=== PATIENT | female | born 1945 | race Caucasian/White ===

== ENCOUNTER 2021-11-13 09:47 | Emergency (ER) | payer MEDICARE, OTHER ==
[~2021-11-13] VITALS: Ht 170 cm; Wt 79.3 kg
[~2021-11-13 09:47] MED LIST: TRM50T PO
--- NOTE | 2021-11-13 10:43 | ED Back Pain ---
General Chief Complaint: Back Problems Stated Complaint: FALL 11/05 - NECK & BACK PAIN Nursing Triage Note: PT AMBULATORY TO ER, PT REPORTS FALLING LAST SATURDAY, STATES HIS HER BACK ON A WOODEN ROCKING HORSE WHEN SHE FELL DOWN, DENIES LOC. PT C/O PAIN TO MID-BACK, RADIATES AROUND INTO ANTERIOR RIBS. PT HAS TAKEN OTC TYLENOL AND IBUPROFEN FOR PAIN CONTROL. Source of Information: Patient Exam Limitations: No Limitations History of Present Illness Date Seen by Provider: Nov 13, 2021 Time Seen by Provider: 10:28 Initial Comments Patient to the ER by private conveyance chief complaint that 1 week ago she had a fall accidentally landing on her back. She does not think she hit her ribs. But has progressively gotten worse with pain and now radiating up her back and her neck as well as across her right lower lateral and anterior ribs. Worse with taking a deep breath. No cough fevers or chills. No loss of control of bowel or bladder, saddle anesthesia, numbness, tingling or falls due to weakness. She is been using Nambutone, Tylenol and NSAIDs without significant relief of pain. Allergies and Home Medications Allergies Coded Allergies: Codeine (Verified Allergy, Unknown, 05/06/08) Penicillins (Verified Allergy, Unknown, 05/06/08) Patient Home Medication List Home Medication List Reviewed: Yes Tramadol Hcl (Ultram) 50 Mg Tab, 100 MG PO Q12H PRN, (Reported) Entered as Reported by: MYLES JOHNSTON on 11/02/12 1033 Review of Systems Constitutional: No chills, No fever, No malaise EENTM: No ear discharge, No hearing loss Respiratory: No cough, No phlegm, No short of breath Cardiovascular: No chest pain, No edema Gastrointestinal: No abdominal pain, No nausea, No vomiting Genitourinary: No dysuria, No frequency : No All Other Systems Reviewed Negative Unless Noted: Yes Past [place]-Xocyif-Ffmfep Hx Patient Social History Tobacco Use?: No Use of E-Cig and/or Vaping dev: No Substance use?: No Alcohol Use?: No Pt feels they are or have been: No Immunizations Up To Date Tetanus Booster (TDap): Unknown PED Vaccines UTD: Yes First/Initial COVID19 Vaccinat: NO Past Medical History 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 0.0oz. 74.466504yy; 27.00 BMI Method: General Appearance: WD/WN, Mild Distress HEENT: PERRL/EOMI, Pharynx Normal, Moist Mucous Membranes Neck: Full Range of Motion, Normal Inspection Cardiovascular: Regular Rate, Rhythm, No Edema, Normal Peripheral Pulses Respiratory: Lungs Clear, Normal Breath Sounds, No Accessory Muscle Use, No Respiratory Distress Peripheral Pulses: 2+ Radial Pulses (R), 2+ Radial Pulses (L) Back: Normal Inspection, Muscle Spasm, Vertebral Tenderness (Mid thoracic midline tenderness without step-off or deformity or crepitus. Muscle spasms paraspinous thoracic.) Extremity: Normal Capillary Refill, Normal Inspection, Normal Range of Motion Neurologic/Psychiatric: Alert, Oriented x3, No Motor/Sensory Deficits, Normal Mood/Affect, Other (Normal motor strength and sensation all 4 extremities) Progress/Results/Core Measures Results/Orders My Orders Orders - VICTOR M GUZMÁN Ct Thoracic Spine Wo (11/13/21 10:39) Ribs, Right 2-3 Views (11/13/21 10:39) Hydrocodone/Apap 5/325 Tablet (Lortab 5 (11/13/21 10:45) Medications Given in ED Current Medications Medications Dose Ordered Sig/Masha Route Start Time Stop Time Status Last Admin Dose Admin Acetaminophen/ Hydrocodone Bitart 1 ea ONCE ONCE PO 11/13/21 10:45 11/13/21 10:46 DC 11/13/21 10:45 1 EA Vital Signs/I&O 11/13/21 09:58 Temp 36.4 Pulse 84 Resp 20 B/P (MAP) 140/81 (100) Pulse Ox 95 O2 Delivery Room Air Blood Pressure Mean: 100 Progress Progress Note : Time: 10:42 Progress Note Plain films of the right ribs 2-3 views, CT of the thoracic spine and hydrocodone for discomfort. Diagnostic Imaging Diagonstic Imaging: Xray Plain Films/CT/US/NM/MRI: other (right ribs) Comments [facility] [place], [place] NAME: JERRI RODRIGUEZ [facility] REC#: [id number] PT STATUS: REG ER : 1945 PHYSICIAN: VICTOR M GUZMÁN MD ADMIT DATE: 11/13/21/ER Signed Date of Exam:11/13/21 RIBS, RIGHT 2-3 VIEWS HISTORY: Right rib pain. TECHNIQUE: Frontal and oblique views of the right ribs COMPARISON: None FINDINGS: The right lung is clear. There is no pleural effusion or pneumothorax. There is a minimally displaced fracture of the lateral right 9th rib. There are degenerative changes in the right shoulder. IMPRESSION: 1. Age-indeterminate minimally displaced fracture of the lateral right 9th rib. Please correlate with point tenderness. Dictated by: Dictated on workstation # [id number] Dict: 11/13/21 1148 Trans: 11/13/21 1200 [id number] Interpreted by: TAMMIE RESENDIZ MD Electronically signed by: TAMMIE RESENDIZ MD 11/13/21 1200 Reviewed: Reviewed by Me Diagonstic Imaging: CT Plain Films/CT/US/NM/MRI: other (Thoracic spine) Comments [facility] [place] NAME: JERRI RODRIGUEZ [facility] REC#: [id number] PT STATUS: REG ER : 1945 PHYSICIAN: VICTOR M GUZMÁN MD ADMIT DATE: 11/13/21/ER Signed Date of Exam:11/13/21 CT THORACIC SPINE WO PROCEDURE: CT thoracic spine without contrast. TECHNIQUE: Multiple axial computerized tomography images were obtained from the base of the thoracic spine to the vertex without intravenous contrast. Auto Exposure Controls were utilized during the CT exam to meet ALARA standards for radiation dose reduction. INDICATION: Right-sided mid back pain. COMPARISON: None. FINDINGS: No acute fracture or dislocation in the thoracic spine. Alignment is anatomic. No focal osseous lesions are seen. No evidence of acute spinal canal stenosis. No high density material is seen within the spinal canal. The paraspinal soft tissues are unremarkable. Included lungs are clear. IMPRESSION: 1. No acute fracture or dislocation in the thoracic spine. Dictated by: Dictated on workstation # [id number] Dict: 11/13/21 110 Trans: 11/13/211117 [facility] [id number] Interpreted by: NIKHIL SYKES DO Electronically signed by: NIKHIL SYKES DO 11/13/21 1118 Reviewed: Reviewed by Me Departure Impression Primary Impression: Right rib fracture Qualified Codes: S22.31XA - Fracture of one rib, right side, initial encounter for closed fracture Disposition: HOME, SELF-CARE Condition: Stable Departure-Patient Inst. Decision time for Depature: 12:17 Referrals: NO,LOCAL PHYSICIAN (PCP/Family) Primary Care Physician Patient Instructions: Rib Fracture (DC) Add. Discharge Instructions: Topical creams such as icy hot or Biofreeze can be helpful. Ibuprofen, Aleve, naproxen can be helpful for pain. Tylenol 1000 mg every 8 hours needed for pain. Hydrocodone 1 tablet every 6 hours as needed for severe breakthrough pain. For the next week take 10 breaths every hour while awake through the incentive spirometer to help prevent pneumonia and keep your lungs inflated. Heating pads can be helpful for pain. All discharge instructions reviewed with patient and/or family. Voiced understanding. Scripts Hydrocodone/Acetaminophen (Hydrocodone-Acetamin 5-325 mg) 5 Mg-325 Mg Tablet 1 TAB PO Q6H PRN for PAIN-MODERATE (5-7), #15 TAB 0 Refills Prov: VICTOR M GUZMÁN 11/13/21 VICTOR M GUZMÁN Nov 13, 2021 10:43
[2021-11-13] MEDS ORDERED: HYDROcodone/APAP 5 MG/325 MG (LORTAB) TAB PO ONE (10:45)
--- NOTE | 2021-11-13 11:12 | Diagnostic Imaging Report ---
PROCEDURE: CT thoracic spine without contrast. TECHNIQUE: Multiple axial computerized tomography images were obtained from the base of the thoracic spine to the vertex without intravenous contrast. Auto Exposure Controls were utilized during the CT exam to meet ALARA standards for radiation dose reduction. INDICATION: Right-sided mid back pain. COMPARISON: None. FINDINGS: No acute fracture or dislocation in the thoracic spine. Alignment is anatomic. No focal osseous lesions are seen. No evidence of acute spinal canal stenosis. No high density material is seen within the spinal canal. The paraspinal soft tissues are unremarkable. Included lungs are clear. IMPRESSION: 1. No acute fracture or dislocation in the thoracic spine. Dictated by: Dictated on workstation # [id number]
--- NOTE | 2021-11-13 11:54 | Diagnostic Imaging Report ---
HISTORY: Right rib pain. TECHNIQUE: Frontal and oblique views of the right ribs COMPARISON: None FINDINGS: The right lung is clear. There is no pleural effusion or pneumothorax. There is a minimally displaced fracture of the lateral right 9th rib. There are degenerative changes in the right shoulder. IMPRESSION: 1. Age-indeterminate minimally displaced fracture of the lateral right 9th rib. Please correlate with point tenderness. Dictated by: Dictated on workstation # [id number]
[2021-11-13] MEDS ORDERED: ACHD5005 PO (12:24)
[2021-11-13 12:30] VITALS: BP 135/94
== END 2021-11-13 12:30 | disposition home or self-care (01) ==
LOC: EDUNIT# 09:47 → ER 09:50
DX: S22.31XA Fracture of one rib, right side, initial encounter for closed fracture (principal); M54.6 Pain in thoracic spine; Z88.5 Allergy status to narcotic agent; Z28.310 Unvaccinated for COVID-19; W19.XXXA Unspecified fall, initial encounter; W22.8XXA Striking against or struck by other objects, initial encounter
CPT/HCPCS: 71100; 72128; 94664; 99283

== ENCOUNTER 2022-04-25 17:38 | Emergency (ER) | payer MEDICARE ==
[~2022-04-25] VITALS: Ht 167 cm; Wt 79.3 kg
[~2022-04-25 17:38] MED LIST changes: +ACHD5005 PO
--- NOTE | 2022-04-25 18:05 | ED Respiratory ---
General Chief Complaint: Respiratory Problems Stated Complaint: SOA Nursing Triage Note: PT AMB TO RM 6 PT CO OF SOA, STARTED 2 DAYS AGO. STATES BURIED SON 2 DAYS AGO. PT HAS AUDITORY WHEEZING NOTED Source: patient Exam Limitations: no limitations (ANNY ADAMS APRN) History of Present Illness Date Seen by Provider: Apr 25, 2022 Time Seen by Provider: 18:50 Initial Comments 77-year-old female presents to the ED with reports of shortness of breath for the last 2 days, as well as a headache that started today. States she has never had shortness of breath before. She used to smoke, quit over 40 years ago. States she only has a cough when she takes a deep breath. Denies any fevers, lower extremity edema. Denies any known sick contacts. States that calvin made a trip to [facility] to bury her son. Denies any recent surgeries, denies history of DVT, is not on chemotherapy. States her only past medical history is arthritis. She currently takes vitamin D, B12 injections, meloxicam, and duloxetine. (ANNY ADAMS APRN) Allergies and Home Medications Allergies Coded Allergies: Penicillins (Verified Allergy, Unknown, 05/06/08) codeine (Verified Allergy, Unknown, 05/06/08) Patient Home Medication List Home Medication List Reviewed: Yes (ANNY ADAMS APRN) Cefuroxime Axetil (Cefuroxime) 500 Mg Tablet, 500 MG PO BID Prescribed by: Anny Adams on 04/25/222052 Hydrocodone/Acetaminophen (Hydrocodone-Acetamin 5-325 mg) 5 Mg-325 Mg Tablet, 1 TAB PO Q6H PRN for PAIN-MODERATE (5-7) Prescribed by: VICTOR M GUZMÁN on 11/13/21 1225 Ipratropium/Albuterol Sulfate (Iprat-Albut 0.5-3(2.5) mg/3 ml) 0.5 Mg-3 Mg (2.5 Mg Base)/3 Ml Ampul.neb, 3 ML IH Q6H PRN for SHORTNESS OF BREATH Prescribed by: Anny Adams on 04/25/222052 Methylprednisolone (Methylprednisolone Dose Pack) 4 Mg Tablet, 4 MG PO UD Prescribed by: Anny Adams on 04/25/222052 Tramadol Hcl (Ultram) 50 Mg Tab, 100 MG PO Q12H PRN, (Reported) Entered as Reported by: MYLES JOHNSTON on 11/02/12 1033 Review of Systems Review of Systems Constitutional: see HPI (ANNY ADAMS APRN) Past Qtqytxi-Fmorgp-Jwhaeg Hx Patient Social History Tobacco Use?: No Substance use?: No Alcohol Use?: No Pt feels they are or have been: No (ANNY ADAMS APRN) Immunizations Up To Date Tetanus Booster (TDap): Unknown PED Vaccines UTD: Yes Influenza Vaccine Up-to-Date: Yes; Up-to-Date First/Initial COVID19 Vaccinat: NO Second COVID19 Vaccination Jaxson: NO Third COVID19 Vaccination Date: NO (ANNY ADAMS APRN) Past Medical History Surgery/Hospitalization HX: ARTHRITIS, GB, HYST,T AND A 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 0.0oz. 74.326264ce; 28.00 BMI Method: General Appearance: WD/WN, no apparent distress Neck: supple, normal inspection Respiratory: lungs clear, normal breath sounds, no respiratory distress, no accessory muscle use Cardiovascular: regular rate, rhythm, no edema, no gallop, no JVD, no murmur Extremities: normal range of motion, normal inspection Neurologic/Psychiatric: alert, normal mood/affect Skin: normal color, warm/dry (ANNY ADAMS APRN) Focused Exam Lactate Level 04/25/22 17:54: Lactic Acid Level 1.26 (VICKY GUTIERREZ DO) Lactic Acid Level Laboratory Tests Test 04/25/22 17:54 Lactic Acid Level 1.26 MMOL/L (0.50-2.00) (VICKY GUTIERREZ DO) Progress/Results/Core Measures Suspected Sepsis SIRS Temperature: Pulse: 97 Respiratory Rate: 16 Laboratory Tests 04/25/22 17:54: White Blood Count 15.6H Blood Pressure 174 /73 Mean: 106 04/25/22 17:54: Lactic Acid Level 1.26 Laboratory Tests 04/25/22 17:54: Creatinine 0.98, Platelet Count 270, Total Bilirubin 0.5 (ANNY ADAMS APRN) Results/Orders Lab Results Laboratory Tests Test 04/25/22 17:54 04/25/22 18:45 04/25/22 19:40 Range/Units White Blood Count 15.6 H 4.3-11.0 10^3/uL Red Blood Count 4.98 3.80-5.11 10^6/uL Hemoglobin 13.9 11.5-16.0 g/dL Hematocrit 43 35-52 % Mean Corpuscular Volume 86 80-99 fL Mean Corpuscular Hemoglobin 28 25-34 pg Mean Corpuscular Hemoglobin Concent 33 32-36 g/dL Red Cell Distribution Width 12.7 10.0-14.5 % Platelet Count 270 130-400 10^3/uL Mean Platelet Volume 8.8 L 9.0-12.2 fL Immature Granulocyte % (Auto) 0 % Neutrophils (%) (Auto) 84 H 42-75 % Lymphocytes (%) (Auto) 10 L 12-44 % Monocytes (%) (Auto) 5 0-12 % Eosinophils (%) (Auto) 1 0-10 % Basophils (%) (Auto) 1 0-10 % Neutrophils # (Auto) 13.1 H 1.8-7.8 10^3/uL Lymphocytes # (Auto) 1.6 1.0-4.0 10^3/uL Monocytes # (Auto) 0.7 0.0-1.0 10^3/uL Eosinophils # (Auto) 0.1 0.0-0.3 10^3/uL Basophils # (Auto) 0.1 0.0-0.1 10^3/uL Immature Granulocyte # (Auto) 0.1 0.0-0.1 10^3/uL Neutrophils % (Manual) 83 % Lymphocytes % (Manual) 16 % Monocytes % (Manual) 1 % Platelet Estimate ADEQUATE Blood Morphology Comment NORMAL D-Dimer 0.57 H 0.00-0.49 UG/ML Sodium Level 137 135-145 MMOL/L Potassium Level 3.7 3.6-5.0 MMOL/L Chloride Level 100 98-107 MMOL/L Carbon Dioxide Level 26 21-32 MMOL/L Anion Gap 11 5-14 MMOL/L Blood Urea Nitrogen 14 7-18 MG/DL Creatinine 0.98 0.60-1.30 MG/DL Estimat Glomerular Filtration Rate 60 BUN/Creatinine Ratio 14 Glucose Level 92 70-105 MG/DL Lactic Acid Level 1.26 0.50-2.00 MMOL/L Calcium Level 9.7 8.5-10.1 MG/DL Corrected Calcium 9.8 8.5-10.1 MG/DL Magnesium Level 1.9 1.6-2.4 MG/DL Total Bilirubin 0.5 0.1-1.0 MG/DL Aspartate Amino Transf (AST/SGOT) 25 5-34 U/L Alanine Aminotransferase (ALT/SGPT) 22 0-55 U/L Alkaline Phosphatase 75 40-136 U/L Troponin I < 0.028 <0.028 NG/ML B-Type Natriuretic Peptide 24.6 <100.0 PG/ML Total Protein 7.3 6.4-8.2 GM/DL Albumin 3.9 3.2-4.5 GM/DL Influenza Type A (RT-PCR) Not Detected Not Detecte Influenza Type B (RT-PCR) Not Detected Not Detecte SARS-CoV-2 RNA (RT-PCR) Not Detected Not Detecte Urine Color YELLOW Urine Clarity CLEAR Urine pH 6.0 5-9 Urine Specific [place] 1.015 L 1.016-1.022 Urine Protein NEGATIVE NEGATIVE Urine Glucose (UA) NEGATIVE NEGATIVE Urine Ketones NEGATIVE NEGATIVE Urine Nitrite NEGATIVE NEGATIVE Urine Bilirubin NEGATIVE NEGATIVE Urine Urobilinogen 0.2 < = 1.0 MG/DL Urine Leukocyte Esterase 2+ H NEGATIVE Urine RBC (Auto) NEGATIVE NEGATIVE Urine RBC 0-2 /HPF Urine WBC 25-50 H /HPF Urine Squamous Epithelial Cells 10-25 H /HPF Urine Crystals NONE /LPF Urine Bacteria MODERATE H /HPF Urine Casts NONE /LPF Urine Mucus NEGATIVE /LPF Urine Culture Indicated YES (VICKY GUTIERREZ DO) Micro Results Microbiology 04/25/22 Urine Culture - Final, Complete 3 or more isolates (VICKY GUTIERREZ DO) My Orders Orders - BRENDA,VICKY K DO Iohexol Injection (Omnipaque 350 Mg/Ml 1 (04/25/22 19:00) Received Contrast (Hold Metformin- Contr (04/25/22 19:00) Ns (Ivpb) (Sodium Chloride 0.9% Ivpb Bag (04/25/22 19:00) (BRENDAVICKY Víctor TELLEZ) Vital Signs/I&O 04/25/22 04/25/22 04/25/22 04/25/22 17:40 18:05 20:20 20:30 Pulse 97 Resp 16 B/P (MAP) 174/73 (106) Pulse Ox 92 89 93 93 O2 Delivery Nasal Cannula Nasal Cannula Nasal Cannula Room Air O2 Flow Rate 2.00 2.00 2.00 04/25/22 21:05 Pulse 92 Resp 21 B/P (MAP) 151/99 Pulse Ox 92 O2 Delivery Room Air (BRENDAVICKY Víctor TELLEZ) Vital Signs/I&O Capillary Refill : (ANNY ADAMS APRN) Blood Pressure Mean: 106 Progress Note #1: Time: 18:04 Progress Note Patient seen and evaluated, resting, in bed, no distress. Based on exam and symptoms, concern for pneumonia, PE, COPD, CHF. Work-up initiated including CBC, CMP, troponin, magnesium, D-dimer, EKG, chest x-ray, BNP, lactic acid. Progress Note #2: Time: 19:00 Progress Note Labs reviewed. CBC shows elevated WBC 15.6, elevated neutrophils 84. CMP grossly normal, potassium 3.7, creatinine 0.98, GFR 60. Lactic acid normal 1.26. Troponin negative. BNP normal at 24.6. D-dimer slightly elevated 0.57. Covid and flu negative. UA negative nitries, 2+ leukocytes, 25-50 WBC, 10-25 squamous epithelial cells, moderate bacteria. Will treat for urinary tract infection with rocephin here and prescription. PCN is listed as an allergy, but patient's reaction is "wooziness," not an allergic reaction. CTA ordered for elevated d- dimer and SOA, although Wells score is 0. Progress Note #3: Time: 20:10 Progress Note CTA negative for PE and other acute abnormalities. Patient's O2 saturation has remained in the low 90s with occasional drops to 89% on room air while in the ED. She does not have pneumonia, CHF, or a PE. Family had reported hearing her wheeze, I did not hear any wheezing when assessing lung sounds, but will try a DuoNeb to see if it improves SOA and O2 saturation. Progress Note #4: Time: 20:45 Progress Note Patient reported feeling better after the breathing treatment, solumedrol ordered as well. O2 saturation has remained in the low 90s since breathing treatment, it has not dropped into the 80s again. Patient is feeling better and wants to go home. Results discussed with patient. Will discharge with DuoNebs, steroids, and antibiotic. Instructed patient to follow up with PCP and that she may require PFTs when she is feeling better. Discharge instructions and return precautions provided. (ANNY ADAMS APRN) ECG Initial ECG Impression Date: Apr 25, 2022 Initial ECG Impression Time: 17:50 Initial ECG Rate: 91 Initial ECG Rhythm: Normal Sinus Initial ECG Intervals: Normal Initial ECG Impression: Normal Initial ECG Comparisson: Unchanged (ANNY ADAMS APRN) Diagnostic Imaging Diagonstic Imaging: Xray Plain Films/CT/US/NM/MRI: chest [facility] [place] [place] NAME: JERRI RODRIGUEZ [facility] REC#: [id number] PT STATUS: REG ER : 1945 PHYSICIAN: ANNY ADAMS APRN ADMIT DATE: 04/25/22/ER Signed Date of Exam:04/25/22 CHEST 1 VIEW, AP/PA ONLY CHEST 1 VIEW, AP/PA ONLY Indication: Shortness of breath Comparison: None available. Findings: No focal airspace disease in the visualized lungs. No pleural effusion or pneumothorax. Normal cardiomediastinal silhouette. Impression: 1. No acute cardiopulmonary process by portable radiography. Dictated by: Dictated on workstation # [id number] Dict: 04/25/221848 Trans: 04/25/221849 [facility] [id number] Interpreted by: KING CUMMINGS MD Electronically signed by: KING CUMMINGS MD 04/25/221849 Diagonstic Imaging: CT Plain Films/CT/US/NM/MRI: chest Comments [facility] [place] [place] NAME: JERRI RODRIGUEZ [facility] REC#: [id number] PT STATUS: REG ER : 1945 PHYSICIAN: ANNY ADAMS APRN ADMIT DATE: 04/25/22/ER Signed Date of Exam:04/25/22 CT ANGIO CHEST W (R/O PE) PROCEDURE: CT angiography Chest TECHNIQUE: After intravenous administration of contrast, thin section axial CT angiography of the chest was performed. 3D MIP reconstructions were made. All CT scans use one or more of the following dose optimizing techniques: automated exposure control, MA and/or KvP adjustment based on a patient size and exam type, or iterative reconstruction. INDICATION: Shortness of air and elevated d-dimer COMPARISON: None available FINDINGS: Vasculature: No pulmonary emboli. No CT evidence of pulmonary hypertension or right ventricular strain. Thoracic aorta is normal in caliber. No aortic dissection or pseudoaneurysm. Heart and mediastinum: Visualized thyroid is normal. No supraclavicular, axillary, or intra-thoracic lymphadenopathy. The heart is normal in size without pericardial effusion. Pleura: No pleural effusion or pneumothorax. Lungs and airway: No endoluminal lesion in the trachea or central bronchi. No pneumonia or edema. No suspicious pulmonary nodules. Upper abdomen: Allowing for the phase of contrast, no acute abnormality in the upper abdomen is seen. Musculoskeletal: No concerning osseous lesion. IMPRESSION: 1. No acute cardiopulmonary process. Specifically, no pulmonary emboli or acute aortic syndrome. Dictated by: Dictated on workstation # [id number] Dict: 04/25/221943 Trans: 04/25/221945 [facility] [id number] Interpreted by: KING CUMMINGS MD Electronically signed by: KING CUMMINGS MD 04/25/221945 (ANNY ADAMS APRN) Departure Impression Primary Impression: Bronchitis Disposition: 01 HOME, SELF-CARE Condition: Stable Departure-Patient Inst. Decision time for Depature: 20:49 (ANNY ADAMS APRN) Referrals: NO,LOCAL PHYSICIAN (PCP/Family) Primary Care Physician Patient Instructions: Acute Bronchitis Add. Discharge Instructions: Use the breathing treatments up to 4 times a day as needed for trouble breathing. The Medrol Dosepak as prescribed. Complete the full course of antibiotic. Follow-up with your primary care provider. You may need a pulmonary function test after you begin to feel better. Return for worsening shortness of breath, chest pain, fever, or any other new, concerning, or worsening symptoms. All discharge instructions reviewed with patient and/or family. Voiced understanding. Scripts Methylprednisolone (Methylprednisolone Dose Pack) 4 Mg Tablet 4 MG PO UD for 6 Days, #21 TAB 0 Refills FOLLOW DOSE PACK INSTRUCTIONS Prov: ANNY ADAMS APRN 04/25/22 Ipratropium/Albuterol Sulfate (Iprat-Albut 0.5-3(2.5) mg/3 ml) 0.5 Mg-3 Mg (2.5 Mg Base)/3 Ml Ampul.neb 3 ML IH Q6H PRN for SHORTNESS OF BREATH, #28 EACH 0 Refills Prov: ANNY ADAMS APRN 04/25/22 Cefuroxime Axetil (Cefuroxime) 500 Mg Tablet 500 MG PO BID for 7 Days, #14 TAB 0 Refills Prov: ANNY ADAMS APRN 04/25/22 ATTENDING PHYSICIAN NOTE: I WAS PHYSICALLY PRESENT ER PHYSICIAN, BUT I WAS NOT INVOLVED IN ANY DECISION MAKING OR ANY CARE OF THIS PATIENT AND I AM NOT COLLABORATING PHYSICIAN. (VICKY GUTIERREZ DO) ANNY ADAMS APRN Apr 25, 2022 18:05 VICKY GUTIERREZ DO Apr 28, 2022 06:25
[2022-04-25 18:08] LABS: BASOPHILS # (AUTO) 0.1 10^3/uL (0.0-0.1); BASOPHILS % (AUTO) 1 % (0-10); EOSINOPHILS # (AUTO) 0.1 10^3/uL (0.0-0.3); EOSINOPHILS % (AUTO) 1 % (0-10); HEMATOCRIT 43 % (35-52); HEMOGLOBIN 13.9 g/dL (11.5-16.0); LYMPHOCYTES # (AUTO) 1.6 10^3/uL (1.0-4.0); LYMPHOCYTES % (AUTO) 10 % (12-44); MEAN CORPUSCULAR HEMOGLOBIN 28 pg (25-34); MEAN CORPUSCULAR HGB CONC 33 g/dL (32-36); MEAN CORPUSCULAR VOLUME 86 fL (80-99); MEAN PLATELET VOLUME 8.8 fL (9.0-12.2); MONOCYTES # (AUTO) 0.7 10^3/uL (0.0-1.0); MONOCYTES % (AUTO) 5 % (0-12); NEUTROPHILS # (AUTO) 13.1 10^3/uL (1.8-7.8); NEUTROPHILS % (AUTO) 84 % (42-75); PLATELET COUNT 270 10^3/uL (130-400); WHITE BLOOD COUNT 15.6 10^3/uL (4.3-11.0)
[2022-04-25 18:27] LABS: LYMPHOCYTES % (MANUAL) 16 %; MONOCYTES % (MANUAL) 1 %; NEUTROPHILS % (MANUAL) 83 %; PLATELET ESTIMATE ADEQUATE; RBC MORPH NORMAL
[2022-04-25 18:42] LABS: ALANINE AMINOTRANSFERASE 22 U/L (0-55); ALBUMIN 3.9 GM/DL (3.2-4.5); ALKALINE PHOSPHATASE 75 U/L (40-136); BILIRUBIN,TOTAL 0.5 MG/DL (0.1-1.0); BUN/CREATININE RATIO 14; CALCIUM 9.7 MG/DL (8.5-10.1); CARBON DIOXIDE 26 MMOL/L (21-32); CHLORIDE 100 MMOL/L (98-107); CREATININE SERUM 0.98 MG/DL (0.60-1.30); GFR ESTIMATED 60; GLUCOSE 92 MG/DL (70-105); MAGNESIUM 1.9 MG/DL (1.6-2.4); POTASSIUM 3.7 MMOL/L (3.6-5.0); SODIUM 137 MMOL/L (135-145); TOTAL PROTEIN 7.3 GM/DL (6.4-8.2)
--- NOTE | 2022-04-25 18:51 | Diagnostic Imaging Report ---
CHEST 1 VIEW, AP/PA ONLY Indication: Shortness of breath Comparison: None available. Findings: No focal airspace disease in the visualized lungs. No pleural effusion or pneumothorax. Normal cardiomediastinal silhouette. Impression: 1. No acute cardiopulmonary process by portable radiography. Dictated by: Dictated on workstation # [id number]
[2022-04-25] MEDS ORDERED: HOLD METFORMIN - RECEIVED CONTRAST 20 ML VIAL IV SCH (19:00)
[2022-04-25] MEDS ORDERED: IOHEXOL 350 MG/ML 100 ML (OMNIPAQUE 350) VIAL IV ONE (19:00)
[2022-04-25] MEDS ORDERED: NS 100 ML (IVPB) BAG IV ONE (19:00)
[2022-04-25 19:47] LABS: BILIRUBIN,URINE NEGATIVE (NEGATIVE); CLARITY,URINE CLEAR; COLOR,URINE YELLOW; GLUCOSE, URINE (UA) NEGATIVE (NEGATIVE); KETONES,URINE NEGATIVE (NEGATIVE); LEUKOCYTE ESTERASE ,URINE 2+ (NEGATIVE); NITRITE,URINE NEGATIVE (NEGATIVE); PROTEIN,URINE NEGATIVE (NEGATIVE)
--- NOTE | 2022-04-25 19:48 | Diagnostic Imaging Report ---
PROCEDURE: CT angiography Chest TECHNIQUE: After intravenous administration of contrast, thin section axial CT angiography of the chest was performed. 3D MIP reconstructions were made. All CT scans use one or more of the following dose optimizing techniques: automated exposure control, MA and/or KvP adjustment based on a patient size and exam type, or iterative reconstruction. INDICATION: Shortness of air and elevated d-dimer COMPARISON: None available FINDINGS: Vasculature: No pulmonary emboli. No CT evidence of pulmonary hypertension or right ventricular strain. Thoracic aorta is normal in caliber. No aortic dissection or pseudoaneurysm. Heart and mediastinum: Visualized thyroid is normal. No supraclavicular, axillary, or intra-thoracic lymphadenopathy. The heart is normal in size without pericardial effusion. Pleura: No pleural effusion or pneumothorax. Lungs and airway: No endoluminal lesion in the trachea or central bronchi. No pneumonia or edema. No suspicious pulmonary nodules. Upper abdomen: Allowing for the phase of contrast, no acute abnormality in the upper abdomen is seen. Musculoskeletal: No concerning osseous lesion. IMPRESSION: 1. No acute cardiopulmonary process. Specifically, no pulmonary emboli or acute aortic syndrome. Dictated by: Dictated on workstation # [id number]
[2022-04-25 19:57] LABS: BACTERIA,URINE MODERATE /HPF; RBC,URINE 0-2 /HPF; WBC,URINE 25-50 /HPF
[2022-04-25] MEDS ORDERED: RT-ALBUTEROL/IPRATROPIUM 3 ML (DUONEB) VIAL INH ONE (20:15)
[2022-04-25] MEDS ORDERED: cefTRIAXone 1 GM PRE-MIX 50 ML IV ONE (20:15)
[2022-04-25] MEDS ORDERED: methylPREDNISolone 125 MG (Solu-MEDROL) VIAL IVP ONE (20:45)
[2022-04-25] MEDS ORDERED: CEFU500T63 PO (20:53)
[2022-04-25] MEDS ORDERED: METH4TAB11 PO (20:53)
[2022-04-25] MEDS ORDERED: IPRA3AMP31 IH (20:53)
[2022-04-25 21:05] VITALS: BP 151/99
== END 2022-04-25 21:13 | disposition home or self-care (01) ==
LOC: EDUNIT# 17:38 → ER 17:39
DX: J40 Bronchitis, not specified as acute or chronic (principal); M19.90 Unspecified osteoarthritis, unspecified site; Z79.899 Other long term (current) drug therapy; Z28.310 Unvaccinated for COVID-19; Z88.0 Allergy status to penicillin; Z20.822 Contact with and (suspected) exposure to COVID-19
CPT/HCPCS: 36415; 71045; 71275; 80053; 81000; 83605; 83735; 83880; 84484; 85007; 85027; 85379; 87088; 87636; 93005; 93041; 94640

== ENCOUNTER 2022-06-27 18:11 | Emergency (ER) | payer MEDICARE ==
[~2022-06-27 18:11] MED LIST changes: +CEFU500T63 PO; +IPRA3AMP31 IH; +METH4TAB11 PO
[2022-06-27] MEDS ORDERED: morphine INJ 10 MG/ML 1ML (SYR OR VIAL) IV STA (18:47)
--- NOTE | 2022-06-27 18:56 | ED Chest Pain ---
General Chief Complaint: Upper Extremity Stated Complaint: RIGHT ARM PAIN INTO NECK Source: patient Exam Limitations: no limitations History of Present Illness Date Seen by Provider: June 27, 2022 Time Seen by Provider: 18:38 Initial Comments Here with complaint of right arm pain that radiates into the neck. Patient states that its been the same no matter what she does. She has tried Tylenol, ibuprofen, naproxen, Relafen and hydrocodone at different times of the last few days and has had no relief in the pain. She has also tried topical patches which have not helped. 6 pain started in the right upper arm and now is up into the neck. She denies chest pain or breathing problems but was noted to have O2 saturation 89% on room air on arrival. She denies using oxygen at home. She is a non-smoker for the last 44 years. She has arthritis but no other significant medical problems. She follows with the [facility] in [place]. Timing/Duration: 2-3 days Severity/Quality: moderate Location: other (Right arm) Radiation: neck Activities at Onset: none Prior CP/Workup: no prior cardiac workup ASA po BATCH BLENDER: No NTG SL BATCH BLENDER: No Associated Symptoms: No back pain, No fatigue, No shortness of breath, No weakness Allergies and Home Medications Allergies Coded Allergies: Penicillins (Verified Allergy, Unknown, 05/06/08) codeine (Verified Allergy, Unknown, 05/06/08) Patient Home Medication List Home Medication List Reviewed: Yes Cefuroxime Axetil (Cefuroxime) 500 Mg Tablet, 500 MG PO BID Prescribed by: Anny Gupta on 04/25/222052 Hydrocodone/Acetaminophen (Hydrocodone-Acetamin 5-325 mg) 5 Mg-325 Mg Tablet, 1 TAB PO Q6H PRN for PAIN-MODERATE (5-7) Prescribed by: VICTOR M GUZMÁN on 11/13/21 1225 Ipratropium/Albuterol Sulfate (Iprat-Albut 0.5-3(2.5) mg/3 ml) 0.5 Mg-3 Mg (2.5 Mg Base)/3 Ml Ampul.neb, 3 ML IH Q6H PRN for SHORTNESS OF BREATH Prescribed by: Anny Gupta on 04/25/222052 Methylprednisolone (Methylprednisolone Dose Pack) 4 Mg Tablet, 4 MG PO UD Prescribed by: Anny Gupta on 04/25/222052 Tramadol Hcl (Ultram) 50 Mg Tab, 100 MG PO Q12H PRN, (Reported) Entered as Reported by: MYLES JOHNSTON on 11/02/12 1033 Review of Systems Review of Systems Constitutional: see HPI; No chills, No fever EENTM: No Nose Pain, No Throat Pain Respiratory: Denies Cough, Denies Shortness of Air Cardiovascular: Denies Chest Pain, Denies Edema Gastrointestinal: Denies Nausea Musculoskeletal: joint pain, muscle pain, neck pain Skin: No change in color, No lesions Psychiatric/Neurological: Denies Headache, Denies Numbness, Denies Paresthesia, Denies Weakness Endocrine: No Symptoms Reported All Other Systems Reviewed Negative Unless Noted: Yes Past Czfrdbi-Xzrdrb-Xdapdo Hx Patient Social History Tobacco Use?: No Use of E-Cig and/or Vaping dev: No Substance use?: No Alcohol Use?: No Immunizations Up To Date Tetanus Booster (TDap): Unknown PED Vaccines UTD: Yes First/Initial COVID19 Vaccinat: NO Second COVID19 Vaccination Jaxson: NO Third COVID19 Vaccination Date: NO Past Medical History Surgery/Hospitalization HX: ARTHRITIS, GB, HYST,T AND A Surgeries: Yes Adenoidectomy, Gallbladder, Hysterectomy, Tonsillectomy Respiratory: No Cardiac: No Neurological: No : No 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 0.0oz. 74.638664az; 28.00 BMI Method: General Appearance: No Apparent Distress, WD/WN HEENT: PERRL/EOMI, Pharynx Normal Neck: Full Range of Motion, Normal Inspection, Non Tender, Supple Respiratory: No Accessory Muscle Use, No Respiratory Distress, Crackles (Bilateral bases) Cardiovascular: Regular Rate, Rhythm, No Murmur Gastrointestinal: Non Tender, Soft Extremity: Normal Range of Motion, Non Tender, Other (Full range of motion right arm and right shoulder without weakness or limitations from pain.) Neurologic/Psychiatric: Alert, Oriented x3 Skin: Normal Color, Warm/Dry Progress/Results/Core Measures Results/Orders Lab Results Laboratory Tests Test 06/27/22 18:50 06/27/22 20:57 Range/Units White Blood Count 17.8 H 4.3-11.0 10^3/uL Red Blood Count 5.45 H 3.80-5.11 10^6/uL Hemoglobin 15.1 11.5-16.0 g/dL Hematocrit 46 35-52 % Mean Corpuscular Volume 85 80-99 fL Mean Corpuscular Hemoglobin 28 25-34 pg Mean Corpuscular Hemoglobin Concent 33 32-36 g/dL Red Cell Distribution Width 13.2 10.0-14.5 % Platelet Count 319 130-400 10^3/uL Mean Platelet Volume 8.8 L 9.0-12.2 fL Immature Granulocyte % (Auto) 0 % Neutrophils (%) (Auto) 83 H 42-75 % Lymphocytes (%) (Auto) 10 L 12-44 % Monocytes (%) (Auto) 6 0-12 % Eosinophils (%) (Auto) 1 0-10 % Basophils (%) (Auto) 1 0-10 % Neutrophils # (Auto) 14.7 H 1.8-7.8 10^3/uL Lymphocytes # (Auto) 1.8 1.0-4.0 10^3/uL Monocytes # (Auto) 1.0 0.0-1.0 10^3/uL Eosinophils # (Auto) 0.1 0.0-0.3 10^3/uL Basophils # (Auto) 0.1 0.0-0.1 10^3/uL Immature Granulocyte # (Auto) 0.1 0.0-0.1 10^3/uL Neutrophils % (Manual) 84 % Lymphocytes % (Manual) 6 % Monocytes % (Manual) 6 % Band Neutrophils 4 % Platelet Estimate NORMAL Blood Morphology Comment NORMAL Prothrombin Time 13.3 12.2-14.7 SEC INR Comment 1.0 0.8-1.4 Activated Partial Thromboplast Time 30 24-35 SEC D-Dimer 0.46 0.00-0.49 UG/ML Sodium Level 139 135-145 MMOL/L Potassium Level 4.1 3.6-5.0 MMOL/L Chloride Level 101 98-107 MMOL/L Carbon Dioxide Level 27 21-32 MMOL/L Anion Gap 11 5-14 MMOL/L Blood Urea Nitrogen 13 7-18 MG/DL Creatinine 1.11 0.60-1.30 MG/DL Estimat Glomerular Filtration Rate 52 BUN/Creatinine Ratio 12 Glucose Level 106 H 70-105 MG/DL Calcium Level 10.1 8.5-10.1 MG/DL Corrected Calcium 9.9 8.5-10.1 MG/DL Magnesium Level 2.0 1.6-2.4 MG/DL Total Bilirubin 0.9 0.1-1.0 MG/DL Aspartate Amino Transf (AST/SGOT) 20 5-34 U/L Alanine Aminotransferase (ALT/SGPT) 20 0-55 U/L Alkaline Phosphatase 79 40-136 U/L Myoglobin 56.3 10.0-92.0 NG/ML Troponin I < 0.028 <0.028 NG/ML B-Type Natriuretic Peptide 33.2 <100.0 PG/ML Total Protein 8.1 6.4-8.2 GM/DL Albumin 4.2 3.2-4.5 GM/DL Urine Color YELLOW Urine Clarity SL CLOUDY Urine pH 7.0 5-9 Urine Specific Goldsmith 1.010 L 1.016-1.022 Urine Protein NEGATIVE NEGATIVE Urine Glucose (UA) NEGATIVE NEGATIVE Urine Ketones NEGATIVE NEGATIVE Urine Nitrite NEGATIVE NEGATIVE Urine Bilirubin NEGATIVE NEGATIVE Urine Urobilinogen 1.0 < = 1.0 MG/DL Urine Leukocyte Esterase 2+ H NEGATIVE Urine RBC (Auto) NEGATIVE NEGATIVE Urine RBC 0-2 /HPF Urine WBC 10-25 H /HPF Urine Squamous Epithelial Cells 25-50 H /HPF Urine Crystals PRESENT H /LPF Urine Amorphous Sediment FEW ERN PHOSPHATE H /LPF Urine Bacteria TRACE /HPF Urine Casts NONE /LPF Urine Mucus NEGATIVE /LPF Urine Culture Indicated YES My Orders Orders - ROQUE DE SOUZA MD Cbc With Automated Diff (06/27/22 18:47) Magnesium (06/27/22 18:47) Chest 1 View, Ap/Pa Only (06/27/22 18:47) Ekg Tracing (06/27/22 18:47) Comprehensive Metabolic Panel (06/27/22 18:47) Myoglobin Serum (06/27/22 18:47) Protime With Inr (06/27/22 18:47) Partial Thromboplastin Time (06/27/22 18:47) O2 (06/27/22 18:47) Monitor-Rhythm Ecg Trace Only (06/27/22 18:47) Lipid Panel (06/28/22 06:00) Ed Iv/Invasive Line Start (06/27/22 18:47) Fibrin Degradation Products (06/27/22 18:47) Troponin I [place] (06/27/22 18:47) Aspirin Chewable Tablet (Baby Aspirin Ch (06/27/22 19:00) Morphine Injection (Morphine Injection (06/27/22 18:47) Manual Differential (06/27/22 18:50) Bnp Carissa (06/27/22 19:24) Ct Chest W (06/27/22 19:57) Ct Cervical Spine Wo (06/27/22 19:57) Iohexol Injection (Omnipaque 350 Mg/Ml 1 (06/27/22 20:15) Received Contrast (Hold Metformin- Contr (06/27/22 20:15) Ns (Ivpb) (Sodium Chloride 0.9% Ivpb Bag (06/27/22 20:15) Ua Culture If Indicated (06/27/22 20:50) Ns Iv 1000 Ml (Sodium Chloride 0.9%) (06/27/22 20:50) Urine Culture (06/27/22 20:57) Oxycodone/Apap 5/325mg Tablet (Percocet (06/27/22 22:15) Rx-Albuterol Inhaler (Rx-Ventolin Hfa In (06/27/22 22:05) Azithromycin Tablet (Zithromax Tablet) (06/27/22 22:05) Cefdinir Capsule (Omnicef Capsule) (06/27/22 22:15) Medications Given in ED Current Medications Medications Dose Ordered Sig/Masha Route Start Time Stop Time Status Last Admin Dose Admin Aspirin 324 mg ONCE ONCE PO 06/27/22 19:00 06/27/22 19:01 DC 06/27/22 19:06 324 MG Iohexol 100 ml ONCE ONCE IV 06/27/22 20:15 06/27/22 20:17 DC 06/27/22 20:22 75 ML Sodium Chloride 100 ml ONCE ONCE IV 06/27/22 20:15 06/27/22 20:17 DC 06/27/22 20:22 80 ML Vital Signs/I&O 06/27/22 06/27/22 18:37 18:37 Temp 36.8 Pulse 86 Resp 20 B/P (MAP) 113/71 (85) Pulse Ox 96 96 O2 Delivery Nasal Cannula Nasal Cannula O2 Flow Rate 2.00 2.00 Progress Progress Note : Progress Note Seen and evaluated. IV, labs including CBC, CMP, troponin, myoglobin and coags ordered. D-dimer ordered. EKG and chest x-ray ordered. ASA 324 mg p.o. and morphine 4 mg IV ordered. Monitor patient. Differential diagnosis includes cardiac event, pulmonary embolism, musculoskeletal pain, cervical radiculopathy 1924: Chest x-ray reviewed by me shows atelectasis versus edema especially in the bases bilateral on my interpretation. CBC does show elevated white count of 17,000 and left shift. CMP grossly normal with normal magnesium. Pending troponin, myoglobin and D-dimer. Monitor patient. 1956: D-dimer is negative and troponin is negative as well as myoglobin. Chest x-ray results from radiology reviewed below. Given these findings and my concern on chest x-ray, we will go ahead and get CT of the chest with contrast and I will get CT of the C-spine without contrast given concerns for radiculopathy. Monitor patient. 2034: I do not see any obvious cervical spine fracture but did note degeneration on C-spine CT on my interpretation. CTA of the chest does not reveal significan t large infiltrate or mass on my interpretation. Pending radiology report. 2049: Radiology report reviewed. Patient could have right-sided pneumonia. I did discuss findings and concerns with the patient and family. She does have elevated white count and still is requiring a little bit of oxygen. We will go ahead and give normal saline 1 L bolus as she does appear to be dehydrated due to concentration findings on CBC with respect to hemoglobin. Patient states that she often will have a urinary tract infection and not feel symptoms so we will go ahead and check UA. We will see how she does after that and determine disposition at that time. This was discussed with patient and family who agree. Monitor patient. 2206: Overall doing better. Off oxygen and remains 92 to 94% on room air. Patient does have CT findings concerning for but Nutri formation on the right which may be pneumonia. Given her elevated white count, we will go ahead and initiate antibiotics with azithromycin 500 mg p.o. and cefdinir 300 mg p.o. and continue this outpatient. Albuterol MDI inhaler given and we will ensure that she knows how to use that. For the arm pain, oxycodone 5/325 1 tab p.o. given now and we will give short prescription for that. I did discuss with the patient and her family at length regarding concerns for pneumonia as well as cardiac concerns and the need for cardiac follow-up. She will work through the [facility] and also call cardiology. I did review return precautions and discharge instructions with the patient and family. All verbalized understanding of instructions and agreement with plan. Initial ECG Impression Date: June 27, 2022 Initial ECG Impression Time: 18:55 Initial ECG Rate: 86 Initial ECG Rhythm: Normal Sinus Initial ECG Impression: Normal Comment Sinus rhythm with normal axis. No evidence of ST elevation [place]. Interpreted by me. Diagnostic Imaging Diagonstic Imaging: Xray Plain Films/CT/US/NM/MRI: chest Comments [facility] [place], [place] NAME: JERRI RODRIGUEZ [facility] REC#: [id number] PT STATUS: REG ER : 1945 PHYSICIAN: ROQUE DE SOUZA MD ADMIT DATE: 06/27/22/ER Signed Date of Exam:06/27/22 CHEST 1 VIEW, AP/PA ONLY INDICATION: Chest pain EXAMINATION: Chest 06/27/2022 COMPARISON: 04/25/2022 FINDINGS: Single view chest The heart is prominent. Pulmonary vasculature unremarkable. There is a vague nodular area in the left perihilar region which could be a vessel on end with a lung nodule not excluded. The remaining lungs clear with no infiltrates or effusions. There is no pneumothorax. IMPRESSION: 1. Questionable nodularity in the left perihilar region. Follow-up versus nonemergent CT could provide further characterization. Otherwise negative chest. Dictated by: Dictated on workstation # [id number] Dict: 06/27/221918 Trans: 06/27/221925 CHRISTIE [id number] Interpreted by: VITOR BARRY MD Electronically signed by: VITOR BARRY MD 06/27/221925 Diagonstic Imaging: CT Plain Films/CT/US/NM/MRI: chest Comments [facility] [place] [place] NAME: JERRI RODRIGUEZ [facility] REC#: [id number] PT STATUS: REG ER : 1945 PHYSICIAN: ROQUE DE SOUZA MD ADMIT DATE: 06/27/22/ER Signed Date of Exam:06/27/22 CT CHEST W EXAMINATION: CT chest with intravenous contrast. TECHNIQUE: Multiple contiguous axial images were obtained through the chest after the uneventful administration of intravenous contrast. All CT scans use one or more of the following dose optimizing techniques: automated exposure control, MA and/or KvP adjustment based on patient size and exam type or iterative reconstruction. HISTORY: Right arm pain. COMPARISON: Chest radiograph performed earlier the same date. FINDINGS: The heart size is within normal limits. No pericardial effusion is present. There is no mediastinal, hilar or axillary lymphadenopathy. The lungs demonstrate no pulmonary nodule or mass. Minimal tree-in-bud opacities are seen in the mid right lung. There is no focal area of consolidation. No central endobronchial obstructing lesion is identified. There is no pleural effusion or pneumothorax. The osseous structures demonstrate no acute abnormality. Limited views of the upper abdominal structures demonstrate no acute abnormality. The gallbladder is surgically absent. IMPRESSION: Minimal tree-in-bud opacities in the mid right lung, suggestive of inflammatory/infectious process. No focal consolidation or pleural effusion. Dictated by: Dictated on workstation # [id number] Dict: 06/27/222025 Trans: 06/27/222033 [facility] [id number] Interpreted by: NIKHIL SYKES DO Electronically signed by: NIKHIL SYKES DO 06/27/222033 Diagonstic Imaging: CT Plain Films/CT/US/NM/MRI: c-spine Comments [facility] [place] [place] NAME: JERRI RODRIGUEZ [facility] REC#: [id number] PT STATUS: REG ER : 1945 PHYSICIAN: ROQUE DE SOUZA MD ADMIT DATE: 06/27/22/ER Signed Date of Exam:06/27/22 CT CERVICAL SPINE WO PROCEDURE: CT cervical spine without contrast. TECHNIQUE: Multiple contiguous axial images were obtained through the cervical spine without the use of intravenous contrast. Sagittal and coronal reformations were then performed. Auto Exposure Controls were utilized during the CT exam to meet ALARA standards for radiation dose reduction. INDICATION: Neck pain with right upper extremity radiculopathy. COMPARISON: 11/13/2021. FINDINGS: No acute fracture or dislocation in the cervical spine. There is straightening of the cervical spine. No focal osseous lesion. Cqoi-ob-xgiulmwv degenerative changes are present in the cervical spine with disc osteophyte complexes and uncovertebral arthropathy. No acute spinal canal stenosis. The soft tissues of the neck are unremarkable. The included lung apices are clear. IMPRESSION: No acute fracture or dislocation in the cervical spine. Dictated by: Dictated on workstation # [id number] Dict: 06/27/222019 Trans: 06/27/222033 [facility] [id number] Interpreted by: NIKHIL SYKES DO Electronically signed by: NIKHIL SYKES DO 06/27/222033 Departure Impression Primary Impression: Pneumonia Qualified Codes: J18.9 - Pneumonia, unspecified organism Additional Impression: Right arm pain Disposition: 01 HOME, SELF-CARE Condition: Improved Departure-Patient Inst. Decision time for Depature: 22:09 Referrals: AXEL QUEZADA MD NO,LOCAL PHYSICIAN (PCP) Primary Care Physician Patient Instructions: Chest Pain (DC), Muscle and Bone Pain (DC), Pneumonia, Adult ED Add. Discharge Instructions: All discharge instructions reviewed with patient and/or family. Voiced understanding. Take medications as prescribed. You may use the inhaler 2 puffs every 6 hours as needed for shortness of breath. You should periodically monitor your oxygen saturations and return if O2 saturations are in the 80s despite using inhaler. It is very important that you follow-up with your health clinic for recheck and further evaluation of your lungs and for cardiology follow-up. You may also follow-up with the golf ball trimmer listed or of your choosing by calling office for appointment. It is very important that you return if you are having chest pain, breathing problems, weakness, O2 saturations in the 80s, fever or other concerns as needed. Scripts Oxycodone HCl/Acetaminophen (Oxycodone-Acetaminophen 5-325) 5 Mg-325 Mg Tablet 1 EACH PO Q6H PRN for PAIN-MODERATE MDD 6 for 3 Days, #8 TAB 0 Refills Prov: ROQUE DE SOUZA MD 06/27/22 Cefdinir (Cefdinir) 300 Mg Capsule 300 MG PO BID, #19 CAP 0 Refills Prov: ROQUE DE SOUZA MD 06/27/22 Azithromycin (Azithromycin) 250 Mg Tablet 250 MG PO DAILY, #4 TAB 0 Refills Prov: ROQUE DE SOUZA MD 06/27/22 ROQUE DE SOUZA MD June 27, 2022 18:56
[2022-06-27] MEDS ORDERED: ASPIRIN 81 MG CHEW (CHILDREN'S ASA) PO ONE (19:00)
[2022-06-27 19:04] LABS: BASOPHILS # (AUTO) 0.1 10^3/uL (0.0-0.1); BASOPHILS % (AUTO) 1 % (0-10); EOSINOPHILS # (AUTO) 0.1 10^3/uL (0.0-0.3); EOSINOPHILS % (AUTO) 1 % (0-10); HEMATOCRIT 46 % (35-52); HEMOGLOBIN 15.1 g/dL (11.5-16.0); LYMPHOCYTES # (AUTO) 1.8 10^3/uL (1.0-4.0); LYMPHOCYTES % (AUTO) 10 % (12-44); MEAN CORPUSCULAR HEMOGLOBIN 28 pg (25-34); MEAN CORPUSCULAR HGB CONC 33 g/dL (32-36); MEAN CORPUSCULAR VOLUME 85 fL (80-99); MEAN PLATELET VOLUME 8.8 fL (9.0-12.2); MONOCYTES % (AUTO) 6 % (0-12); NEUTROPHILS # (AUTO) 14.7 10^3/uL (1.8-7.8); NEUTROPHILS % (AUTO) 83 % (42-75); PLATELET COUNT 319 10^3/uL (130-400); WHITE BLOOD COUNT 17.8 10^3/uL (4.3-11.0)
[2022-06-27 19:13] LABS: ALBUMIN 4.2 GM/DL (3.2-4.5)
[2022-06-27 19:14] LABS: POTASSIUM 4.1 MMOL/L (3.6-5.0)
[2022-06-27 19:15] LABS: CALCIUM 10.1 MG/DL (8.5-10.1)
[2022-06-27 19:16] LABS: TOTAL PROTEIN 8.1 GM/DL (6.4-8.2)
[2022-06-27 19:17] LABS: PROTHROMBIN TIME PATIENT 13.3 SEC (12.2-14.7)
[2022-06-27 19:18] LABS: BILIRUBIN,TOTAL 0.9 MG/DL (0.1-1.0)
[2022-06-27 19:20] LABS: CREATININE SERUM 1.11 MG/DL (0.60-1.30)
--- NOTE | 2022-06-27 19:23 | Diagnostic Imaging Report ---
INDICATION: Chest pain EXAMINATION: Chest 06/27/2022 COMPARISON: 04/25/2022 FINDINGS: Single view chest The heart is prominent. Pulmonary vasculature unremarkable. There is a vague nodular area in the left perihilar region which could be a vessel on end with a lung nodule not excluded. The remaining lungs clear with no infiltrates or effusions. There is no pneumothorax. IMPRESSION: 1. Questionable nodularity in the left perihilar region. Follow-up versus nonemergent CT could provide further characterization. Otherwise negative chest. Dictated by: Dictated on workstation # [id number]
[2022-06-27 19:40] LABS: BAND NEUTROPHILS 4 %; LYMPHOCYTES % (MANUAL) 6 %; MONOCYTES % (MANUAL) 6 %; NEUTROPHILS % (MANUAL) 84 %; PLATELET ESTIMATE NORMAL; RBC MORPH NORMAL
[2022-06-27] MEDS ORDERED: NS 100 ML (IVPB) BAG IV ONE (20:15)
[2022-06-27] MEDS ORDERED: IOHEXOL 350 MG/ML 100 ML (OMNIPAQUE 350) VIAL IV ONE (20:15)
[2022-06-27] MEDS ORDERED: HOLD METFORMIN - RECEIVED CONTRAST 20 ML VIAL IV SCH (20:15)
--- NOTE | 2022-06-27 20:24 | Diagnostic Imaging Report ---
PROCEDURE: CT cervical spine without contrast. TECHNIQUE: Multiple contiguous axial images were obtained through the cervical spine without the use of intravenous contrast. Sagittal and coronal reformations were then performed. Auto Exposure Controls were utilized during the CT exam to meet ALARA standards for radiation dose reduction. INDICATION: Neck pain with right upper extremity radiculopathy. COMPARISON: 11/13/2021. FINDINGS: No acute fracture or dislocation in the cervical spine. There is straightening of the cervical spine. No focal osseous lesion. Cspj-po-kershclh degenerative changes are present in the cervical spine with disc osteophyte complexes and uncovertebral arthropathy. No acute spinal canal stenosis. The soft tissues of the neck are unremarkable. The included lung apices are clear. IMPRESSION: No acute fracture or dislocation in the cervical spine. Dictated by: Dictated on workstation # [id number]
--- NOTE | 2022-06-27 20:30 | Diagnostic Imaging Report ---
EXAMINATION: CT chest with intravenous contrast. TECHNIQUE: Multiple contiguous axial images were obtained through the chest after the uneventful administration of intravenous contrast. All CT scans use one or more of the following dose optimizing techniques: automated exposure control, MA and/or KvP adjustment based on patient size and exam type or iterative reconstruction. HISTORY: Right arm pain. COMPARISON: Chest radiograph performed earlier the same date. FINDINGS: The heart size is within normal limits. No pericardial effusion is present. There is no mediastinal, hilar or axillary lymphadenopathy. The lungs demonstrate no pulmonary nodule or mass. Minimal tree-in-bud opacities are seen in the mid right lung. There is no focal area of consolidation. No central endobronchial obstructing lesion is identified. There is no pleural effusion or pneumothorax. The osseous structures demonstrate no acute abnormality. Limited views of the upper abdominal structures demonstrate no acute abnormality. The gallbladder is surgically absent. IMPRESSION: Minimal tree-in-bud opacities in the mid right lung, suggestive of inflammatory/infectious process. No focal consolidation or pleural effusion. Dictated by: Dictated on workstation # [id number]
[2022-06-27] MEDS ORDERED: NS IV 1000 ML 1,000 ML IV STA (20:50)
[2022-06-27 21:03] LABS: BILIRUBIN,URINE NEGATIVE (NEGATIVE); CLARITY,URINE SL CLOUDY; COLOR,URINE YELLOW; GLUCOSE, URINE (UA) NEGATIVE (NEGATIVE); KETONES,URINE NEGATIVE (NEGATIVE); LEUKOCYTE ESTERASE ,URINE 2+ (NEGATIVE); NITRITE,URINE NEGATIVE (NEGATIVE); PROTEIN,URINE NEGATIVE (NEGATIVE)
[2022-06-27 21:11] LABS: BACTERIA,URINE TRACE /HPF; RBC,URINE 0-2 /HPF; SQUAMOUS EPITHELIAL CELL,UR 25-50 /HPF
[2022-06-27 21:12] LABS: AMORPHOUS SEDIMENT,UR FEW AMOR PHOSPHATE /LPF
[2022-06-27] MEDS ORDERED: AZITHROMYCIN 250 MG TAB (ZITHROMAX) PO STA (22:05)
[2022-06-27] MEDS ORDERED: RX-ALBUTEROL INHALER 8.5 GM HFA (PROAIR) IH STA (22:05)
[2022-06-27] MEDS ORDERED: AZIT250T12 PO (22:12)
[2022-06-27] MEDS ORDERED: CEFD300C3 PO (22:12)
[2022-06-27] MEDS ORDERED: OXYC1TAB11 PO (22:12)
[2022-06-27] MEDS ORDERED: oxyCODONE/APAP 5/325MG (PERCOCET 5) TABLET PO ONE (22:15)
[2022-06-27] MEDS ORDERED: CEFDINIR 300 MG (OMNICEF) CAP PO ONE (22:15)
[2022-06-27 22:31] VITALS: BP 102/84
== END 2022-06-27 22:31 | disposition home or self-care (01) ==
LOC: EDUNIT# 18:11 → ER 18:12
DX: J18.9 Pneumonia, unspecified organism (principal); M79.601 Pain in right arm; Z87.891 Personal history of nicotine dependence; Z88.0 Allergy status to penicillin; Z88.5 Allergy status to narcotic agent; Z28.310 Unvaccinated for COVID-19
CPT/HCPCS: 36415; 71045; 71260; 72125; 80053; 81000; 83735; 83874; 83880; 84484; 85007; 85027; 85379; 85610; 85730; 87088; 93005; 93041

== ENCOUNTER 2022-12-24 13:31 | Emergency (ER) | payer MEDICARE ==
[~2022-12-24 13:31] MED LIST changes: +AZIT250T12 PO; +CEFD300C3 PO; +OXYC1TAB11 PO
--- NOTE | 2022-12-24 14:36 | ED Fall/Injury ---
General Chief Complaint: Trauma-Non Activation Stated Complaint: FALL/POSS HEAD INJ BACK/RIB PAIN Nursing Triage Note: PT TO [facility] 4 PT CO OF UPPER BACK PAIN FROM FALL THIS AM. PT STATES SLIPPED ON FLOOR HIT BACK OF HEAD. NOT SURE IF HAD LOC. PT STATES PAIN 10/10 RIGHT WHERE BRA STRAP RUNS. PT DOES HAVE LUM ON BACK OF HEAD Source: patient Exam Limitations: no limitations History of Present Illness Date Seen by Provider: Dec 24, 2022 Time Seen by Provider: 13:50 Initial Comments 77-year-old female presents to the ER after a fall which occurred around 10:30 AM. She states that she fell because there was something slick on the floor. She landed backwards hitting the back of her head and her upper back. She is complaining mostly of mid to upper back pain at the location of her bra strap. She also has a hematoma to the back of her head, but states her head is not causing her much pain unless you touch it. She is uncertain if she lost consci ousness. States that the fall was unwitnessed. She denies taking any blood thinners. She denies any chest pain or shortness of air. She is alert and oriented x4. Allergies and Home Medications Allergies Coded Allergies: Penicillins (Verified Allergy, Unknown, 05/06/08) codeine (Verified Allergy, Unknown, 05/06/08) Patient Home Medication List Home Medication List Reviewed: Yes Azithromycin (Azithromycin) 250 Mg Tablet, 250 MG PO DAILY Prescribed by: ROQUE DE SOUZA on 06/27/222211 Cefdinir (Cefdinir) 300 Mg Capsule, 300 MG PO BID Prescribed by: ROQUE DE SOUZA on 06/27/222211 Cefuroxime Axetil (Cefuroxime) 500 Mg Tablet, 500 MG PO BID Prescribed by: Anny Gupta on 04/25/222052 Hydrocodone/Acetaminophen (Hydrocodone-Acetamin 5-325 mg) 5 Mg-325 Mg Tablet, 1 TAB PO Q6H PRN for PAIN-MODERATE (5-7) Prescribed by: VICTOR M GUZMÁN on 11/13/21 1225 Hydrocodone/Acetaminophen (Hydrocodone-Acetamin 5-325 mg) 5 Mg-325 Mg Tablet, 1 TAB PO Q4H PRN for PAIN-MODERATE (5-7) Prescribed by: Anny Gupta on 12/24/22 1609 Ipratropium/Albuterol Sulfate (Iprat-Albut 0.5-3(2.5) mg/3 ml) 0.5 Mg-3 Mg (2.5 Mg Base)/3 Ml Ampul.neb, 3 ML IH Q6H PRN for SHORTNESS OF BREATH Prescribed by: Anny Gupta on 04/25/222052 Methylprednisolone (Methylprednisolone Dose Pack) 4 Mg Tablet, 4 MG PO UD Prescribed by: Anny Gupta on 04/25/222052 Oxycodone HCl/Acetaminophen (Oxycodone-Acetaminophen 5-325) 5 Mg-325 Mg Tablet, 1 EACH PO Q6H PRN for PAIN-MODERATE Prescribed by: ROQUE DE SOUZA on 06/27/222211 Tramadol Hcl (Ultram) 50 Mg Tab, 100 MG PO Q12H PRN, (Reported) Entered as Reported by: MYLES JOHNSTON on 11/02/12 1033 Review of Systems Review of Systems Constitutional: see HPI Past Qgqgxmy-[id number]-Hxjtlm Hx Immunizations Up To Date Tetanus Booster (TDap): Unknown PED Vaccines UTD: Yes First/Initial COVID19 Vaccinat: NO Second COVID19 Vaccination Jaxson: NO Third COVID19 Vaccination Date: NO Past Medical History Surgery/Hospitalization HX: ARTHRITIS, GB, HYST,T AND A Surgeries: Yes Adenoidectomy, Gallbladder, Hysterectomy, Tonsillectomy Respiratory: No Cardiac: No Neurological: No 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 0.0oz. [id number]; 28.00 BMI Method: General Appearance: WD/WN, no apparent distress HEENT: PERRL/EOMI, TMs normal Neck: non-tender, full range of motion, supple, normal inspection Cardiovascular: regular rate, rhythm Respiratory: lungs clear, normal breath sounds, no respiratory distress, no accessory muscle use Back: vertebral tenderness (Midthoracic) Extremities: normal range of motion, normal inspection Neurologic/Psychiatric: chuck tender II-XII nml as tested, no motor/sensory deficits, alert, normal mood/affect, oriented x 3 Skin: normal color, warm/dry Progress/Results/Core Measures Results/Orders My Orders Orders - ANNY SANTOS APRN Ct Head/Cervical Spine Wo (12/24/22 14:31) Ct Thoracic Spine Wo (12/24/22 14:31) Hydrocodone/Apap 10/325 Tablet (Hydrocod (12/24/22 15:30) Medications Given in ED Current Medications Medications Dose Ordered Sig/Masha Route Start Time Stop Time Status Last Admin Dose Admin Acetaminophen/ Hydrocodone Bitart 1 ea ONCE ONCE PO 12/24/22 15:30 12/24/22 15:31 DC 12/24/22 15:48 1 EA Vital Signs/I&O 12/24/22 12/24/22 14:25 16:27 Pulse 70 71 Resp 18 18 B/P (MAP) 146/71 (96) 145/70 Pulse Ox 95 93 Blood Pressure Mean: 96 Progress Progress Note : Progress Note Patient seen and evaluated, resting in bed, no acute distress. Based on exam and symptoms, CT of the head, C-spine, and thoracic spine ordered. [address] head and neck negative for acute abnormality. CT of the thoracic spine shows an acute compression fracture of T4 with 25% height loss. No retropulsion noted. Results discussed with patient. Patient instructed to follow-up with orthospine in [place] and her primary care provider. Will discharge with prescription for pain medication. Patient is stable for discharge. Discharge instructions and return precautions provided. Departure Impression Primary Impression: Compression fracture of T4 vertebra Additional Impressions: Fall Head injury Disposition: HOME, SELF-CARE Condition: Stable Departure-Patient Inst. Referrals: WU ARANGO MD NO,LOCAL PHYSICIAN (PCP) Primary Care Physician Patient Instructions: Vertebral Compression Fracture (DC) Add. Discharge Instructions: Follow-up with the orthospine doctor at [place]. Follow-up with your primary care provider as well. Take [place] as needed for pain. It may make you sleepy. It can also cause constipation. No lifting greater than 10 pounds. Return for severe pain, severe headache, abnormal behavior, difficulty doing normal activities, weakness on one side your body, or any other new, concerning, or worsening symptoms. All discharge instructions reviewed with patient and/or family. Voiced understanding. Scripts Hydrocodone/Acetaminophen (Hydrocodone-Acetamin 5-325 mg) 5 Mg-325 Mg Tablet 1 TAB PO Q4H PRN for PAIN-MODERATE (5-7), #15 TAB 0 Refills Prov: ANNY SANTOS APRN 12/24/22 ANNY SANTOS APRN Dec 24, 2022 14:36
[2022-12-24] MEDS ORDERED: HYDROcodone/ACETAMINOPHEN 10/325 TABLET PO ONE (15:30)
--- NOTE | 2022-12-24 15:39 | Diagnostic Imaging Report ---
PROCEDURE: CT head and CT cervical spine without contrast. TECHNIQUE: Multiple contiguous axial images were obtained through the brain and cervical spine without the use of intravenous contrast. Sagittal and coronal reformations through the cervical spine were then performed. Auto Exposure Controls were utilized during the CT exam to meet ALARA standards for radiation dose reduction. INDICATION: Headache and neck pain after fall. COMPARISON: None. FINDINGS: Left posterior scalp swelling. No acute intracranial hemorrhage. The rich-white matter differentiation is preserved. The ventricles and cortical sulci are normal. No midline shift or mass effect. The sella is normal. The subarachnoid cisterns are maintained. The globes and orbits are intact. Small mucus retention cyst within the right maxillary sinus. Mild left mastoid effusions. The cervical spine demonstrates straightening of the cervical lordosis. No acute fracture or dislocation of the cervical spine. Mild to moderate multilevel facet arthritis. Moderate multilevel disc height loss. No high-grade spinal canal or neural foraminal stenosis. No high-density fluid within the spinal canal. Moderate multilevel spinal canal and neural foraminal stenosis. Included views of the lung apices demonstrates no significant abnormality. IMPRESSION: No acute intracranial hemorrhage. No large vascular territory devlin-white loss. No intracranial mass, midline shift, or hydrocephalus. No acute fracture or dislocation of the cervical spine. Dictated by: Dictated on workstation # [id number]
--- NOTE | 2022-12-24 15:41 | Diagnostic Imaging Report ---
PROCEDURE: CT thoracic spine without contrast. TECHNIQUE: Multiple axial computerized tomography images were obtained from the base of the thoracic spine to the vertex without intravenous contrast. Auto Exposure Controls were utilized during the CT exam to meet ALARA standards for radiation dose reduction. INDICATION: Back pain after trauma. COMPARISON: CT of the thoracic spine on 11/13/2021. Acute compression fracture of T4 with a 25% height loss. No associated bony retropulsion. Generalized demineralization of the osseous structures. No lytic or sclerotic bone lesions. No other fractures identified. Included views of the chest demonstrates no significant abnormality. No high-grade spinal canal or neuroforaminal stenosis. No high-density fluid within the spinal canal. IMPRESSION: Acute compression fracture of T4 with 25% height loss. Dictated by: Dictated on workstation # [id number]
[2022-12-24] MEDS ORDERED: ACHD5005 PO (16:09)
[2022-12-24 16:27] VITALS: BP 145/70
== END 2022-12-24 16:24 | disposition home or self-care (01) ==
LOC: EDUNIT# 13:31 → ER 13:33
DX: S09.90XA Unspecified injury of head, initial encounter (principal); S22.049A Unspecified fracture of fourth thoracic vertebra, initial encounter for closed fracture; W01.10XA Fall on same level from slipping, tripping and stumbling with subsequent striking against unspecified object, initial encounter
CPT/HCPCS: 70450; 72125; 72128